=== PATIENT | female | born 1955 | race Caucasian/White ===

== ENCOUNTER 2023-01-17 12:28 | Outpatient (CLI) | payer MEDICARE, SELFPAY | END 2023-01-17 12:29 | disposition home or self-care (01) | LOC: ANHAUDIO 12:28 | PROVIDERS: PCP Internal Medicine; Visit Provider Otolaryngology | DX: H90.41 Sensorineural hearing loss, unilateral, right ear, with unrestricted hearing on the contralateral side (principal) | CPT/HCPCS: 92557; 92567 ==